=== PATIENT | male | born 1995 | race Caucasian/White ===

== ENCOUNTER 2022-09-26 20:48 | Emergency (ER) | payer OTHER ==
[2022-09-26 21:07] VITALS: TEMP 97.8; BMI 32.1
[2022-09-26 21:51] LABS: HEMATOCRIT 41.7 % (35.4-49); HEMOGLOBIN 14.9 G/dL (11.7-16.9); MCH 32.3 pg (25.7-33.7); MCHC 35.7 g/dl (32.0-35.9); MEAN CELL VOLUME 90.5 fl (80-96); MEAN PLT VOLUME 8.4 fl (7.5-11.1); PLATELET COUNT 279.3 10^3/uL (134-434); RBC 4.61 10^6/uL (4.00-5.60); RDW 13.3 % (11.9-15.9); WHITE BLOOD COUNT 8.8 10^3/uL (4.0-10.8)
[2022-09-26 22:03] LABS: ALBUMIN 4.4 g/dl (3.4-5.0); BILIRUBIN,TOTAL 0.7 mg/dl (0.2-1); CALCIUM 9.2 mg/dl (8.5-10); CREATININE 0.9 mg/dl (0.55-1.3); TOT PROT 7.2 g/dl (6.4-8.2)
[2022-09-26 22:18] VITALS: BP 127/89; PULSE 78; RESP 16
[2022-09-26 22:27] LABS: INR 0.98 (0.83-1.09); PROTHROMBIN TIME (PATIENT) 11.3 SEC (9.7-13.0)
== END 2022-09-26 22:40 | disposition left against medical advice (07) ==
LOC: FER 20:48
DX: I63.9 Cerebral infarction, unspecified (principal)
CPT/HCPCS: 0241U-QW; 36415; 70450-TC; 80053; 82550; 82553; 84484; 85027; 85610; 93005; 99285-25